=== PATIENT | male | born 1960 | race African-American/Black ===

== ENCOUNTER 2016-10-21 09:32 | Day surgery (SDC) | payer OTHER ==
[2016-10-18 10:13] VITALS: BMI 27.6
[2016-10-21] MEDS ORDERED: MIDAZOLAM HCL 2 MG/2 ML SINGLE DOSE VIAL ONE (11:39)
[2016-10-21] MEDS ORDERED: PROPOFOL 20 ML ONE (11:40)
[2016-10-21] MEDS ORDERED: morphine CARPU-JECT 10 MG/1 ML DISP.SYRIN ONE (12:42)
[2016-10-21 14:45] VITALS: TEMP 98.2
[2016-10-21 15:22] VITALS: BP 125/74; PULSE 62
--- NOTE | 2016-10-22 10:58 | OP ---
DATE OF OPERATION: 10/21/2016 PREOPERATIVE DIAGNOSIS: Triangular cartilage tear at the right wrist. 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 SURGEON: Annelise Barry MD RADIO ELECTRICIAN: FÉLIX Rodriguez ANESTHESIA: Ayaan Fabian MD. General anesthesia was performed. DESCRIPTION OF PROCEDURE: The procedure consisted of the patient being brought in the operating room and gently transferred from the stretcher to the OR table with all bony prominences well padded. The right arm was prepared and draped in a sterile fashion. The patient was given intravenous antibiotics and copious irrigation throughout the procedure to minimize the risk of infection. Complete risks and benefit's discussion was conducted with the patient, which was inclusive of, but not limited to, infection, bleeding, , paralysis, increased pain, need for repeat surgery. Patient asked questions, understood the procedure, and desired to proceed with surgical treatment. Following sterile preparation an draping of the right shoulder, an appropriate timeout was conducted which was inclusive of, but not limited to site of surgery , name of surgeon, anesthesia, type of surgery, anesthesiologist. Following sterile preparation and draping of the right wrist and hand, the patient had a tourniquet applied, but it was not inflated. Median and lateral portals were used to introduce the arthroscope and arthroscopic instruments. Gentle traction between 10-12 pounds was applied across the wrist joint. The wrist joint was evaluated. There was noted to be joint debris in the wrist joint, and a joint debridement was performed. In the radiocarpal joint space, there was noted to be chondromalacia changes from the lunate surface to the distal radial articulation, and this was debrided using shaver and radiofrequency wand. There was noted to be tearing of the triangular cartilage which was debrided using shaver and radiofrequency wand. There was noted to have atrophic synovium, and extensive partial synovectomy was performed. The wrist joint was then copiously irrigated with sterile saline irrigant. Wounds were closed with Steri-Strips, Xeroform, 4 x 4's, sterile Webril, and Izaiah bandages and a stockinette for elevation. The patient was then gently awoke from anesthesia without incident and transferred from the operating room to the recovery room in satisfactory condition. There were no intraoperative complications. ANNELISE BARRY M.D. MARTÍNEZ/[id number] [facility]
== END 2016-10-21 15:24 | disposition home or self-care (01) ==
LOC: FASU 09:32
PROVIDERS: ATTEND Orthopaedic Surgery
PROC: 0RBN4ZZ Excision of Right Wrist Joint, Percutaneous Endoscopic Approach (ICD-10-PCS; principal; 2016-10-21 12:34)
DX: S63.591A Other specified sprain of right wrist, initial encounter (principal); M94.231 Chondromalacia, right wrist; M67.231 Synovial hypertrophy, not elsewhere classified, right forearm; M25.831 Other specified joint disorders, right wrist; X58.XXXA Exposure to other specified factors, initial encounter; Y93.9 Activity, unspecified; Y92.9 Unspecified place or not applicable
CPT/HCPCS: 94760